=== PATIENT | female | born 1945 | race Caucasian/White ===

== ENCOUNTER 2020-07-04 15:59 | Observation (INO) | payer MEDICARE ==
[~2020-07-04] VITALS: Ht 162.6 cm; Wt 64.0 kg
[~2020-07-04 15:59] MED LIST: ADVAIR DISK1 INH; ALBUTEROL SUL0.083 % IN; AMLODIPINE5 MG PO; ATENOLOL25 MG PO; ATENOLOL50 MG PO; BENAZEPRIL20 M1 PO; BENAZEPRIL40 M1 PO; BL VIT B-12500 MCG PO; BUSPAR5 M1 PO; CLEOCIN300 MG PO; DOXYCYCL HYC100 MG PO; FLONASE NASAL50 MCG; FOLIC ACID1 M1 PO; HYDROCHLOROT12.5 MG PO; HYDROCHLOROT25 MG PO; KAYEXALATE15 GM/60 M PO; LEVAQUIN750 MG PO; MUCINEX600 MG PO; OXY1; PREDNISONE10 MG PO; PREDNISONE20 MG PO; SYMBICORT1 AE1 IN
[2020-07-04] MEDS ORDERED: HYDROCHLOROT25 MG PO (16:57)
[2020-07-04] MEDS ORDERED: TRELEGY ELLIPTA1 AER PO (16:57)
[2020-07-04] MEDS ORDERED: LEVOTHYROXIN50 MCG PO (16:57)
[2020-07-04] MEDS ORDERED: BENAZEPRIL HYDR40 MG PO (16:59)
[2020-07-04 17:05] LABS: IMMATURE GRANULOCYTES 0.5 % (0.0-5.0); MEAN CELL VOLUME 104.9 fL CALC (80.0-100.0); MEAN CORPUSCULAR HGB CONC 33.3 g/dL CAL (32.0-36.0); NEUT# 6.97 thou/uL (2.00-7.15); RED BLOOD COUNT 4.06 mill/uL (4.20-5.60); RED CELL DISTRI WIDTH 12.4 % (11.5-15.5)
[2020-07-04 17:08] LABS: HEMATOCRIT 42.6 % (37.0-47.0); HEMOGLOBIN 14.2 g/dl (12.0-16.0)
[2020-07-04 17:21] LABS: ALKALINE PHOSPHATASE 112 u/l (38-126); BUN 30 mg/dL (8-23); BUN/CREATININE RATIO 28 (12-20 (CALC)); CHLORIDE 101 mmol/l (95-108); CREATININE 1.1 mg/dL (0.5-1.0); GFR 49 ML/MIN (>=60 (CALC)); GFR FOR AFR.AMER. 59 ML/MIN (>=60 (CALC)); MAGNESIUM 1.9 mg/dL (1.6-2.3); SGOT/AST 41 u/l (9-36); SODIUM 135 mmol/l (137-146)
[2020-07-04 17:22] LABS: ALBUMIN 4.1 g/dL (3.2-5.0); ANION GAP 27 (6-22 (CALC)); BILIRUBIN, TOTAL 1.2 mg/dL (0.0-1.4); CARBON DIOXIDE 11 mmol/l (22-30); POTASSIUM 3.9 mmol/l (3.5-5.1); TOTAL PROTEIN 7.4 g/dL (6.3-8.2)
[2020-07-04 17:56] LABS: URINE BILIRUBIN - DIPSTICK SMALL (NEGATIVE); URINE BLOOD DIPSTICK TRACE-LYSED (NEGATIVE); URINE COLOR YELLOW; URINE GLUCOSE - DIPSTICK NEGATIVE (NEGATIVE); URINE KETONE >=80 mg/dL (NEGATIVE); URINE LEUK ESTERASE NEGATIVE (NEGATIVE); URINE NITRITE - DIPSTICK NEGATIVE (Negative); URINE PH 5.5 (4.5-8.0); URINE PROTEIN - DIPSTICK NEGATIVE (NEG-TRACE); URINE SPECIFIC GRAVITY >=1.030; URINE UROBILINOGEN - DIPSTICK 0.2 E.U./dL (0.2)
[2020-07-04 19:36] LABS: ANION GAP 23 (6-22 (CALC)); BUN 30 mg/dL (8-23); BUN/CREATININE RATIO 30 (12-20 (CALC)); CHLORIDE 100 mmol/l (95-108); GFR 54 ML/MIN (>=60 (CALC)); GFR FOR AFR.AMER. > 60 ML/MIN (>=60 (CALC)); POTASSIUM 4.3 mmol/l (3.5-5.1); SODIUM 136 mmol/l (137-146)
[2020-07-04 19:37] LABS: CARBON DIOXIDE 17 mmol/l (22-30)
[2020-07-04 22:20] VITALS: BP 171/95
[2020-07-05] VITALS: BP 141/95
[2020-07-05 04:00] VITALS: BP 156/89
[2020-07-05 07:46] VITALS: BP 161/94
[2020-07-05 11:36] VITALS: BP 113/68
[2020-07-05 14:40] VITALS: BP 149/89
[2020-07-05 16:28] LABS: BUN 22 mg/dL (8-23); BUN/CREATININE RATIO 24 (12-20 (CALC)); CHLORIDE 104 mmol/l (95-108); CREATININE 0.9 mg/dL (0.5-1.0); GFR > 60 ML/MIN (>=60 (CALC)); GFR FOR AFR.AMER. > 60 ML/MIN (>=60 (CALC)); POTASSIUM 3.8 mmol/l (3.5-5.1); SODIUM 134 mmol/l (137-146)
[2020-07-05 16:31] LABS: ANION GAP 10 (6-22 (CALC)); CARBON DIOXIDE 24 mmol/l (22-30)
[2020-07-05 19:25] VITALS: BP 127/78
[2020-07-06] VITALS: BP 139/87
[2020-07-06 04:51] VITALS: BP 154/87
[2020-07-06 05:54] LABS: HEMATOCRIT 40.3 % (37.0-47.0); HEMOGLOBIN 13.4 g/dl (12.0-16.0); MEAN CELL VOLUME 106.3 fL CALC (80.0-100.0); MEAN CORPUSCULAR HGB 35.4 pG CALC (26.0-32.0); MEAN CORPUSCULAR HGB CONC 33.3 g/dL CAL (32.0-36.0); RED BLOOD COUNT 3.79 mill/uL (4.20-5.60); RED CELL DISTRI WIDTH 12.6 % (11.5-15.5)
[2020-07-06 06:07] LABS: ALKALINE PHOSPHATASE 84 u/l (38-126); ANION GAP 8 (6-22 (CALC)); BILIRUBIN, TOTAL 0.9 mg/dL (0.0-1.4); BUN 20 mg/dL (8-23); BUN/CREATININE RATIO 27 (12-20 (CALC)); CARBON DIOXIDE 25 mmol/l (22-30); CHLORIDE 108 mmol/l (95-108); CREATININE 0.7 mg/dL (0.5-1.0); GFR > 60 ML/MIN (>=60 (CALC)); GFR FOR AFR.AMER. > 60 ML/MIN (>=60 (CALC)); POTASSIUM 3.9 mmol/l (3.5-5.1); SGOT/AST 28 u/l (9-36); SODIUM 137 mmol/l (137-146)
[2020-07-06 06:31] LABS: ALBUMIN 3.1 g/dL (3.2-5.0); TOTAL PROTEIN 5.6 g/dL (6.3-8.2)
[2020-07-06 07:31] VITALS: BP 142/97
[2020-07-06 10:35] VITALS: BP 148/93
[2020-07-06 15:38] VITALS: BP 182/105
== END 2020-07-06 17:49 | disposition home health service (06) ==
LOC: ED 15:59 → ED-I 18:39 → ED 18:50 → MS2 18:51
PROVIDERS: Nurse Practitioner Family; ADMIT Internal Medicine; ATTEND Internal Medicine
DX: E87.2 Acidosis (principal); N17.9 Acute kidney failure, unspecified; E86.0 Dehydration; E16.2 Hypoglycemia, unspecified; F10.20 Alcohol dependence, uncomplicated; I10 Essential (primary) hypertension; J44.9 Chronic obstructive pulmonary disease, unspecified; E03.9 Hypothyroidism, unspecified; F41.9 Anxiety disorder, unspecified; F32.9 Major depressive disorder, single episode, unspecified; F17.210 Nicotine dependence, cigarettes, uncomplicated; S90.01XA Contusion of right ankle, initial encounter; W19.XXXA Unspecified fall, initial encounter; Y92.009 Unspecified place in unspecified non-institutional (private) residence as the place of occurrence of the external cause; Z20.822 Contact with and (suspected) exposure to COVID-19
CPT/HCPCS: G0378

== ENCOUNTER 2021-03-19 12:39 | Emergency (ER) | payer MEDICARE ==
[~2021-03-19] VITALS: Ht 162.6 cm; Wt 59.0 kg
[~2021-03-19 12:39] MED LIST changes: +BENAZEPRIL HYDR40 MG PO; +LEVOTHYROXIN50 MCG PO; +TRELEGY ELLIPTA1 AER PO
[2021-03-19] MEDS ORDERED: HYDROCO/APAP1 TA9 PO (14:17)
[2021-03-19 16:15] VITALS: BP 171/85
== END 2021-03-19 16:10 | disposition home or self-care (01) ==
LOC: ED 12:39
PROC: 2W3DX1Z Immobilization of Left Lower Arm using Splint (ICD-10-PCS; principal; 2021-03-19)
DX: S52.502A Unspecified fracture of the lower end of left radius, initial encounter for closed fracture (principal); S52.612A Displaced fracture of left ulna styloid process, initial encounter for closed fracture; I10 Essential (primary) hypertension; F41.9 Anxiety disorder, unspecified; F32.A Depression, unspecified; F17.210 Nicotine dependence, cigarettes, uncomplicated; W18.39XA Other fall on same level, initial encounter; Y92.009 Unspecified place in unspecified non-institutional (private) residence as the place of occurrence of the external cause

== ENCOUNTER 2024-02-20 15:02 | Emergency (ER) | payer OTHER, MEDICARE ==
[~2024-02-20] VITALS: Ht 162.6 cm; Wt 68.0 kg
[~2024-02-20 15:02] MED LIST changes: +HYDROCO/APAP1 TA9 PO
[2024-02-20 15:59] LABS: BASO% 0.9 % (0-3); HEMATOCRIT 43.5 % (37.0-47.0); HEMOGLOBIN 14.5 g/dl (12.0-16.0); IMMATURE GRANULOCYTES 0.2 % (0.0-5.0); LYMPH% 37.6 % (15-41); MEAN CELL VOLUME 93.8 fL CALC (80.0-100.0); MEAN CORPUSCULAR HGB 31.3 pG CALC (26.0-32.0); MEAN CORPUSCULAR HGB CONC 33.3 g/dL CAL (32.0-36.0); MONO% 5.9 % (2-13); NEUT# 4.81 thou/uL (2.00-7.15); NEUT% 53.4 % (42-76); RED BLOOD COUNT 4.64 mill/uL (4.20-5.60)
[2024-02-20 16:12] LABS: ALBUMIN 3.9 g/dL (3.2-5.0); ALKALINE PHOSPHATASE 73 u/l (38-126); ANION GAP 14 (6-22 (CALC)); BILIRUBIN, TOTAL 0.5 mg/dL (0.02-1.3); BUN 32 mg/dL (8-23); BUN/CREATININE RATIO 20 (12-20 (CALC)); CARBON DIOXIDE 26 mmol/l (22-30); CHLORIDE 103 mmol/l (95-108); CREATININE 1.6 mg/dL (0.5-1.0); ESTIMATED GFR 33 ML/MIN (>=90 (CALC)); POTASSIUM 4.8 mmol/l (3.5-5.1); SGOT/AST 25 u/l (9-36); SODIUM 138 mmol/l (137-146); TOTAL PROTEIN 6.7 g/dL (6.3-8.2)
[2024-02-20 16:24] VITALS: BP 108/62
== END 2024-02-20 16:37 | disposition home or self-care (01) | DRG 605 ==
LOC: ED 15:02
PROVIDERS: Family Medicine
DX: S80.812A Abrasion, left lower leg, initial encounter (principal); M79.642 Pain in left hand; M79.641 Pain in right hand; F10.90 Alcohol use, unspecified, uncomplicated; Y90.6 Blood alcohol level of 120-199 mg/100 ml; I10 Essential (primary) hypertension; F41.9 Anxiety disorder, unspecified; F32.A Depression, unspecified; F17.200 Nicotine dependence, unspecified, uncomplicated; V43.52XA Car driver injured in collision with other type car in traffic accident, initial encounter